=== PATIENT | male | born 1990 | race African-American/Black ===

== ENCOUNTER 2018-06-12 21:13 | Emergency (ER) | payer SELFPAY ==
[2018-06-12] MEDS ORDERED: NORMAL SALINE 1000 ML 1,000 ML IV ONE (22:27)
[2018-06-12] MEDS ORDERED: LORAZEPAM INJ 2 MG/1 ML VIAL IV ONE (22:27)
[2018-06-12] MEDS ORDERED: DIPHENHYDRAMINE HCL 50 MG/ML VIAL IV ONE (22:29)
--- NOTE | 2018-06-12 22:32 | ER Document Report ---
ED Substance Abuse / Acc. OD - General Chief Complaint: Drug Abuse Stated Complaint: AGITATION FROM SUBSTANCE Time Seen by Provider: 06/12/18 22:21 Mode of Arrival: Ambulatory Information source: Patient TRAVEL OUTSIDE OF THE [place] IN LAST 30 DAYS: No - HPI Patient complains to provider of: Other - feeling jittery/agitated Onset: Just prior to arrival Notes: Patient here with complaints of feeling jittery and agitated. The patient states that he takes methamphetamines orally every day. He took methamphetamine early around 1:00. About 2 hours ago he took and extends (male enhancement pill) and approximately half an hour afterwards he started to feel extremely jittery and agitated. He states he was having trouble getting comfortable. States that he took 1 of these male enhancement pills few days ago and it was black in color and he did fine with it. He states that the one he took today was red in color. He denies any chest pain or shortness of breath. No abdominal pain. No nausea, vomiting, diarrhea. No blurred or loss of vision. No unilateral numbness, tingling, weakness. He denies alcohol use. States that he called EMS because he was not able to stop feeling agitated and jittery. Past Medical History - Social History Smoking Status: Current Every Day Smoker Frequency of alcohol use: Rare Drug Abuse: Methamphetamine Family History: Reviewed & Not Pertinent Patient has suicidal ideation: No Patient has homicidal ideation: No - Past Medical History Cardiac Medical History: Reports: Hx Hypertension Renal/ Medical History: Denies: Hx Peritoneal Dialysis Review of Systems - Review of Systems -: Yes All other systems reviewed and negative Physical Exam - Vital signs Vitals: Temp Pulse Resp BP Pulse Ox 98.4 F 124 H 16 190/92 H 100 06/12/18 21:42 06/12/18 21:42 06/12/18 21:42 06/12/18 21:42 06/12/18 21:42 - Notes Notes: GENERAL: alert, cooperative, nontoxic, no distress. Appears agitated with constant generalized jerking movements. HEAD: normocephalic, atraumatic EYES: conjunctiva pink without discharge, no external redness or swelling. EARS: no external swelling, no external redness NOSE: atraumatic, no external swelling MOUTH/THROAT: mucous membranes moist and pink, posterior pharynx without erythema, swelling, exudate. No trismus or drooling. NECK: soft, supple, full range of motion, no meningismus. CHEST: no distress, lungs clear and equal throughout. No wheezing, rales, rhonchi. CARDIAC: regular rate and rhythm, no murmur, normal capillary refill, normal pulses. No peripheral edema noted. ABDOMEN: Soft, nontender. BACK: full range of motion, no CVA tenderness. EXTREMITIES: full range of motion of all extremities. No redness, no swelling. NEURO: alert and oriented x 3, no focal deficits, full range of motion of all extremities. PYSCH: appropriate mood, affect. Patient is cooperative. SKIN: pink, warm, dry, no rash. Course - Re-evaluation Re-evalutation: 06/13/18 00:26 Patient seems to be less agitated and is asleep at this time. He does occasionally have some jerking type motions, but is resting over all. LFTs are noted to be elevated. I have no labs to compare this to. I have ordered an ultrasound to confirm that there is not a structural reason for elevated LFTs and have also added on a hepatitis panel. We will continue to monitor at this time. 06/13/18 02:23 Patient is resting comfortably at this time. He is sleeping and appears to have less jerking activity. EKG is unremarkable. Blood work is unremarkable for any lecture light abnormalities. His LFTs were noted to be elevated. Drug screen p ositive for methamphetamines. Ultrasound of the right upper quadrant is unremarkable. Patient likely has some sort of hepatitis secondary to his substance abuse. At this point the patient is safe for discharge home. Hepatitis panel is currently pending at this time. He will be instructed to [facility] at the next available appointment for reevaluation. He is instructed to stop using methamphetamines and other illicit drugs. Follow-up sooner if he has any worsening symptoms, persistent vomiting, blurred or loss of vision, or for any further concerns. The patient's emergency department workup and current diagnosis were explained to the patient and or family. Follow-up instructions were provided. Medications if prescribed were discussed. Instructions for when to return to the emergency department including specific worrisome symptoms were discussed with the patient and/or family. - Vital Signs Vital signs: Temp Pulse Resp BP Pulse Ox 98.4 F 124 H 16 190/92 H 100 06/12/18 21:42 06/12/18 21:42 06/12/18 21:42 06/12/18 21:42 06/12/18 21:42 - Laboratory Result Diagrams: 06/12/18 22:46 06/12/18 22:46 Laboratory results interpreted by me: 06/12/18 06/12/18 22:46 22:46 RBC 4.33 L Hgb 12.9 L Hct 37.4 L RDW 14.9 H Monocytes % 13.5 H AST 149 H ALT 301 H Alkaline Phosphatase 175 H Creatine Kinase 258 H Total Protein 9.5 H - Diagnostic Test Radiology reviewed: Image reviewed, Reports reviewed - Negative ultrasound of the right upper quadrant - EKG Interpretation by Me EKG shows normal: Sinus rhythm, [place], Intervals, QRS Complexes Rate: Tachycardia When compared to previous EKG there are: Other - No STEMI, no ST depression or elevation. Slight flattening of the T waves in V5 and V6. Nonspecific changes. Discharge - Discharge Clinical Impression: Methamphetamine abuse, Transaminitis Condition: Stable Disposition: HOME, SELF-CARE Instructions: Ampetamine Abuse ([facility], 1928–1983), Liver Function Abnormality ([facility], 1928–1983) Additional Instructions: Stop using methamphetamines as well as any other illicit drugs. Follow-up with primary care at the next available appointment to reevaluate your liver enzymes. Follow-up sooner for any worsening symptoms, high fever, persistent vomiting, severe abdominal pain, or for any further concerns. Forms: Elevated Blood Pressure, Smoking Cessation Education Referrals: [facility] [Provider Group] - Follow up as needed
[2018-06-12 23:07] LABS: ABSOLUTE LYMPHOCYTES (AUTO) 2.9 10^3/uL (0.5-4.7); ABSOLUTE MONOCYTES (AUTO) 1.1 10^3/uL (0.1-1.4); ABSOLUTE NEUT (AUTO) 3.8 10^3/uL (1.7-8.2); BASOPHILS % (AUTO) 0.6 % (0-2); EOSINOPHILS % (AUTO) 0.1 % (0-6); HEMATOCRIT 37.4 % (37.9-51.0); HEMOGLOBIN 12.9 g/dL (13.5-17.0); LYMPHOCYTES % (AUTO) 37.2 % (13-45); MEAN CORPUSCULAR HEMOGLOBIN 29.8 pg (27.0-33.4); MEAN CORPUSCULAR HGB CONC 34.6 g/dL (32.0-36.0); MEAN CORPUSCULAR VOLUME 86 fl (80-97); MONOCYTES % (AUTO) 13.5 % (3-13); PLATELET COUNT 314 10^3/uL (150-450); RED BLOOD COUNT 4.33 10^6/uL (4.35-5.55); RED CELL DISTRIBUTION WIDTH 14.9 % (11.5-14.0); SEGMENTED NEUTROPHILS % (AUTO) 48.6 % (42-78); TOTAL CELLS COUNTED % (AUTO) 100 %; WHITE BLOOD COUNT 7.8 10^3/uL (4.0-10.5)
[2018-06-12 23:26] LABS: ALANINE AMINOTRANSFERASE 301 U/L (21-72); ALBUMIN 4.2 g/dL (3.5-5.0); ALKALINE PHOSPHATASE 175 U/L (38-126); ANION GAP 9 (5-19); ASPARTATE AMINO TRANSFERASE 149 U/L (17-59); BILIRUBIN,DIRECT 0.3 mg/dL (0.0-0.4); BILIRUBIN,TOTAL 0.4 mg/dL (0.2-1.3); BLOOD UREA NITROGEN 10 mg/dL (7-20); CALCIUM 9.9 mg/dL (8.4-10.2); CARBON DIOXIDE 29 mmol/L (22-30); CHLORIDE 102 mmol/L (98-107); CREATINE KINASE 258 U/L (55-170); GLUCOSE 89 mg/dL (75-110); POTASSIUM 4.1 mmol/L (3.6-5.0); SODIUM 140.2 mmol/L (137-145); TOTAL PROTEIN 9.5 g/dL (6.3-8.2)
[2018-06-12 23:27] LABS: ALCOHOL < 10 mg/dL (NONE DETECTED)
[2018-06-12 23:28] LABS: URINE AMPHETAMINES SCREEN UNCONFIRMED POSITIVE; URINE BARBITURATES SCREEN NEGATIVE; URINE BENZODIAZEPINES SCREEN NEGATIVE; URINE COCAINE SCREEN NEGATIVE; URINE MARIJUANA (THC) SCREEN NEGATIVE; URINE METHADONE SCREEN NEGATIVE; URINE PHENCYCLIDINE SCREEN NEGATIVE
--- NOTE | 2018-06-13 01:53 | RADIOLOGY REPORT (SQ) ---
EXAM DESCRIPTION: US ABDOMEN LIMITED COMPLETED DATE/TME: 06/13/2018 00:21 CLINICAL HISTORY: 28 years Male, elevated LFT's Comparison: None. LIMITATIONS: None. FINDINGS: Gallbladder, negative sonographic Jean's test, liver, a 0.3-cm diameter common bile duct, no intrahepatic ductal dilation, 11-cm right kidney, partially obscured pancreas, visualized vasculature/abdominal aorta, and no significant ascites appear otherwise unremarkable. IMPRESSION: Normal RUQ-Abdominal Sonogram.
[2018-06-13 06:40] VITALS: BP 123/86
--- NOTE | 2018-06-13 09:53 | EKG REPORT ---
SEVERITY:- ABNORMAL ECG - SINUS TACHYCARDIA BORDERLINE Q WAVE IN ANTEROLATERAL LEADS INFERIOR Q WAVES, PROBABLY NORMAL VARIATION LATERAL Q WAVES, PROBABLY NORMAL VARIATION BORDERLINE T ABNORMALITIES, INFERIOR LEADS : Confirmed by: Genaro Kingston MD 13-Jun-2018 09:52:00
[2018-06-15 05:39] LABS: HEPATITIS A AB IGM Negative (Negative); HEPATITIS B CORE AB IGM Negative (Negative); HEPATITS B SURFACE ANTIGEN Negative (Negative)
[2018-06-15 07:17] LABS: HEPATITIS C VIRUS ANTIBODY >11.0 s/co ratio (0.0-0.9)
== END 2018-06-13 06:20 | disposition home or self-care (01) ==
LOC: ER 21:13
DX: F15.10 Other stimulant abuse, uncomplicated (principal); R74.0 Nonspecific elevation of levels of transaminase and lactic acid dehydrogenase [LDH]; F17.200 Nicotine dependence, unspecified, uncomplicated; I10 Essential (primary) hypertension
CPT/HCPCS: 93005; 99285; 96361; 96374; 96375; 36415; 80307 ×2; 82550; 85025; 80053; 84484; 80074; 76705; 93010; J1200; J2060; J7030